=== PATIENT | male | born 1995 | race African-American/Black ===

== ENCOUNTER 2017-03-24 18:38 | Emergency (ER) | payer SELFPAY ==
[~2017-03-24] VITALS: Ht 198.1 cm; Wt 84.8 kg
[2017-03-24 19:33] VITALS: BP 152/91
[2017-03-24] MEDS ORDERED: KETOROLAC TROMETH 60MG/2ML VIAL IM ONE (19:45)
[2017-03-24] MEDS ORDERED: CYCLOBENZAPRINE HCL 10 MG TAB PO ONE (20:00)
== END 2017-03-24 21:16 | disposition home or self-care (01) ==
LOC: ER 18:40
DX: S39.012A Strain of muscle, fascia and tendon of lower back, initial encounter (principal); I10 Essential (primary) hypertension; V43.52XA Car driver injured in collision with other type car in traffic accident, initial encounter; Y93.89 Activity, other specified; Y92.89 Other specified places as the place of occurrence of the external cause; Y99.8 Other external cause status
CPT/HCPCS: 72080; 96372; 99284; J1885